=== PATIENT | male | born 1950 | race Caucasian/White ===

== ENCOUNTER 2018-07-18 06:06 | Inpatient (IN) ==
--- NOTE | 2018-07-17 14:35 | Anesthesia Evaluation PreOp ---
Date of Encounter: 07/18/18 Time of Encounter: 06:56 - Past History Planned Operation: endo aaa REPAIR Cardiac History: HTN, Hyperlipidemia, Other (AAA) Pulmonary History: COPD PERSONAL SECRETARY History: Denies Any Significant HX Other Medical History: Renal (bladder cancer) Anesthesia History: No Prior Anesthetic Complications, Past Anesthesia (ORIF ankle, rotator cuff repair, TURBT, hernia, hammer toe) Alcohol Use: none Drug use: none Medications and Allergies Allergy/AdvReac Type Severity Reaction Status Date / Time aspirin [ASA] AdvReac See Verified 07/14/18 11:38 Comments naproxen [From Naprosyn] AdvReac See Verified 07/14/18 11:38 Comments - Meds/Allergy Pre-op Review Medications Reviewed: Yes Allergies Reviewed: Yes Beta Blockers on Current Med List: No Anesthesia Results - Labs Laboratory Tests 07/12/18 07/12/18 10:31 10:31 Hgb 14.9 Hct 44.0 Plt Count 182 Sodium 137 Potassium 4.6 BUN 10 Creatinine 0.81 - Imaging EKG: report reviewed (SINUS RHYTHM WITH OCCASIONAL VENTRICULAR PREMATURE COMPLEXES NONSPECIFIC T-WAVE ABNORMALITY) Additional studies: NUCLEAR STRESS: mpression: No ischemia or infarct on perfusion study. The fixed moderate basal and mid inferior perfusion defect with normal wall motion is likely an artifact. Stress LVEF 55 %. No ischemic stress ECG findings. abdominal CT: FINDINGS: Vasculature: Moderate diffuse atherosclerosis. The renal and visceral arteries are patent, with the inferior mesenteric artery arising at the superior margin of the aneurysm sac. The common iliac arteries are patent where visualized. A fusiform infrarenal abdominal aortic aneurysm is present, which begins approximately 2.6 cm distal to the origin of the right renal arteries, and tapers proximal to the aneurysm sac. In the axial plane, it measures up to 5.3 x 5.8 cm. In the coronal plane, it measures up to 5.6 cm in the transverse dimension. The venous structures are grossly intact. Remainder of exam: The lung bases are unremarkable. The liver, gallbladder, spleen, adrenals, kidneys, and ureters are within normal limits. The bowel appears without acute process where visualized. Diastasis of the rectus musculature is noted. No lymphadenopathy. No free air or free fluid. CT/CT angio abdomen IMPRESSION: Fusiform infrarenal abdominal aortic aneurysm as above, which measures up to 5.8 x 5.3 cm in the axial plane. Its size has increased from the prior exam. Anesthesia Exam Selected Entries 07/18/18 06:28 Temperature 97.8 F Pulse Rate 68 Respiratory Rate 18 Blood Pressure 140/81 O2 Sat by Pulse Oximetry 98 Weight: 115kg NPO (# of Hours): 8 - HEENT Pupil (Motor): EOMI Mallampati: II Teeth: Missing, Poor dentition Denture Type: Upper: Complete Oral Opening: Greater than 3 - PERSONAL SECRETARY LOC: Oriented PERSONAL SECRETARY Motor: Normal RUE, Normal LUE, Normal RLE, Normal LLE, Normal Face PERSONAL SECRETARY Sensory: Normal: RUE, LUE, RLE, LLE, Face - Cardiac Rhythm: Regular Murmur: None - Pulmonary Breath Sounds: bilateral Clear Respiratory Effort: Symmetrical Anesthesia Assess/Plan ASA Score: 3 Modified [place] Scale for Level of Consciousness: Cooperative, oriented, and tranquil Anesthetic Plan: General Monitoring Plan: Standard Monitors, A-Line Recovery Plan: PACU (agrees to GA, a-line, and blood products if needed)
[2018-07-18] MEDS ORDERED: Albuterol 2.5 MG/3 ML NEBULIZER IH ONE (06:19)
[2018-07-18] MEDS ORDERED: CeFAZolin Syr 2,000MG/20 ML 2,000 MG/20 ML SYRINGE IVPB ONE (06:19)
[2018-07-18] MEDS: Ringers Solution, Lactated 1,000 ML IVC SCH ×2 (06:35→12:57)
[2018-07-18] MEDS ORDERED: Lidocaine -MPF 2% 2 ML VIAL ONE (06:54)
[2018-07-18] MEDS ORDERED: *HR* FentaNYL (PF) 100 MCG/2 ML VIAL ONE ×2 (06:54→11:22)
[2018-07-18] MEDS ORDERED: *HR* Rocuronium Bromide 50 MG/5 ML VIAL ONE (06:54)
[2018-07-18] MEDS ORDERED: Ondansetron 4 MG/2 ML VIAL ONE (06:54)
[2018-07-18] MEDS ORDERED: *HR* Succinylcholine 200 MG/10 ML VIAL IVP ONE (06:54)
[2018-07-18] MEDS ORDERED: Dexamethasone 4 MG/ML VIAL ONE (06:54)
[2018-07-18] MEDS ORDERED: *HR* Midazolam HCl 2 MG/2 ML VIAL ONE (06:55)
[2018-07-18] MEDS ORDERED: EPHEDrine 50 MG/ML VIAL ONE ×2 (06:55→10:27)
[2018-07-18] MEDS ORDERED: *HR* Propofol 200 MG/20 ML VIAL IVP ONE (06:55)
[2018-07-18] MEDS ORDERED: *HR* Heparin 5,000 UNIT/ML VIAL ONE (06:56)
[2018-07-18] MEDS ORDERED: Lidocaine -MPF 4% 5 ML AMPUL ONE (06:56)
[2018-07-18] MEDS ORDERED: Heparin 1,000 UNITS/500 mL 500 ML ONE (07:00)
[2018-07-18] MEDS ORDERED: *HR* Phenylephrine 10 MG/ML VIAL ONE ×2 (07:14→10:05)
[2018-07-18] MEDS ORDERED: Heparin 1,000 UNITS/500 mL 1,500 ML ONE (07:26)
[2018-07-18] MEDS ORDERED: Isovue-300 150 ML INFUS..BTL IV ONE (07:27)
--- NOTE | 2018-07-18 07:38 | History & Physical Report ---
Date of Encounter: 07/18/18 Time of Encounter: 07:25 24 Hour HP Update - Instructions Instructions: If the History and Physical is less than 30 days old and was completed prior to A.M. admission and or procedure and has NOT been updated on calendar day of procedure please complete this update prior to performing procedure. - Update Patient reports changes in Medical Condition: No Changes in examination, assessment, or condition: No Changes in Medication: No Preop tests/diagnostics Reviewed: Yes Surgery Remains Indicated: Yes Consent for Planned Operative Procedure(s) Verified: Yes - Pre-Operative Checklist Preoperative Checklist Indicated: Yes Prophylactic Antibiotic Ordered: Yes Home Medications Include Beta Estuardo: No Beta Estuardo Taken Today (Day of Surgery): No Beta Estuardo Taken Yesterday (Day Prior to Surgery): No Is VTE Prophylaxis Indicated?: Yes
[2018-07-18] MEDS ORDERED: ceFAZolin 1,000 MG, Sodium Chloride IRRigation 1,000 ML IR ONE (07:45)
[2018-07-18] MEDS ORDERED: *HR* OxyCODONE Immed Rel 5 MG TABLET PO PRN (08:30)
[2018-07-18] MEDS ORDERED: *HR* Labetalol 20 MG/4 ML SYRINGE IVP PRN ×2 (08:30→12:54)
[2018-07-18] MEDS ORDERED: *HR* Promethazine 25 MG/ML VIAL IVP PRN (08:30)
[2018-07-18] MEDS ORDERED: Heparin 1,000 UNITS/500 mL 1,000 ML ONE (09:28)
[2018-07-18] MEDS ORDERED: Neostigmine Methylsulfate 3 MG/3 ML SYRINGE ONE (10:47)
--- NOTE | 2018-07-18 11:57 | Operative Note ---
Date of procedure: 07/18/18 Pre-op diagnosis: AAA Post-op diagnosis: same Procedure: Endovascular repair of AAA Bilateral open femoral exposure Complications: 0 Anesthesia: GETA Surgeon: Jaydon Jameson Was there an admissions assistant present: No Estimated blood loss (cc): 250 Specimen: 0 Condition: stable Disposition: PACU
--- NOTE | 2018-07-18 12:43 | Anesthesia Evaluation Post Op ---
Date of Encounter: 07/18/18 Time of Encounter: 12:42 - Vital Signs Vital Signs: Vital Signs/O2 Sat, Most Current Temp Pulse Resp BP Pulse Ox 98.2 F 67 14 106/65 100 07/18/18 12:27 07/18/18 12:37 07/18/18 12:37 07/18/18 12:37 07/18/18 12:37 - Lungs Lungs: Clear Ascult./Percussion - Airway Airway: Non-obstructed - Cardiovascular Regular Rate, Baseline Rhythm - Mental Status Mental Status: Alert & Oriented, Answers Appropriately - Pain Pain Scale: 4 Pain Scale used: Numeric (1 - 10) - Nausea Vomiting Nausea Vomiting: Not Present - Hydration Hydration: Ice chips, Lao catheter - Discharge PostOp Status: Transfer Patient to floor
[2018-07-18] MEDS ORDERED: Naloxone 0.4 MG/ML INJ IVP PRN (12:54)
[2018-07-18] MEDS ORDERED: Ondansetron 4 MG/2 ML VIAL IVP PRN (12:54)
[2018-07-18] MEDS ORDERED: *HR* HYDROcodone/Acet 5/325 mg TABLET PO PRN (12:54)
[2018-07-18] MEDS ORDERED: Albuterol 2.5 MG/3 ML NEBULIZER IH PRN (12:54)
[2018-07-18] MEDS: *HR* HYDROcodone/Acet 5/325 mg TABLET PO PRN ×2 (15:25→21:25)
[2018-07-19] MEDS: *HR* HYDROcodone/Acet 5/325 mg TABLET PO PRN ×2 (02:42→08:17)
[2018-07-19 03:05] LABS: Hematocrit 27.8 % (37.5-50.1); Hemoglobin 9.2 g/dL (12.9-16.9); Mean Corpuscular HGB Conc 33.1 g/dL (31.6-35.5); Mean Corpuscular Hemoglobin 31.3 pg (28.0-33.3); Mean Corpuscular Volume 94.6 fL (83.0-100.0); Mean Platelet Volume 8.9 fL (9.4-12.4); Platelet Count 107 K/mcL (140-400); Red Blood Count 2.94 M/mcL (4.19-5.50); Red Cell Distribution Width 12.9 % (11.5-14.5)
[2018-07-19 03:28] LABS: BUN/Creatinine Ratio 12 (6-26); Blood Urea Nitrogen 9 mg/dL (8-23); Calcium 8.8 mg/dL (8.6-10.3); Carbon Dioxide 25 mEq/L (23-29); Chloride 108 mEq/L (98-107); Glucose 135 mg/dL (70-105); Osmolality,Calculated 291 (280-300); Potassium 3.8 mEq/L (3.5-5.1); Sodium 140 mEq/L (136-145); eGFR For Non-African Americans > 60 (> 60)
[2018-07-19] MEDS ORDERED: Tiotropium 18 MCG inhalation IH SCH (07:00)
[2018-07-19] MEDS ORDERED: Loratadine 10 MG TABLET PO SCH (09:00)
[2018-07-19] MEDS ORDERED: amLODIPine 5 MG TABLET PO SCH (09:00)
[2018-07-19 11:45] VITALS: BP 126/79
--- NOTE | 2018-07-19 12:38 | Discharge Summary ---
Date of Encounter: 07/19/18 Time of Encounter: 08:25 - Discharge Diagnosis (1) Abdominal aortic aneurysm Priority: Primary Status: Acute Comments: Patient has asymptomatic but expanding abdominal aortic aneurysm. [facility] Patient underwent endovascular repair with stent graft placement. Qualifiers: Presence of rupture: without rupture Qualified Code(s): I71.4 - Abdominal aortic aneurysm, without rupture (2) COPD (chronic obstructive pulmonary disease) Priority: Secondary Status: Chronic Comments: History of COPD. Qualifiers: COPD type: unspecified COPD Qualified Code(s): J44.9 - Chronic obstructive pulmonary disease, unspecified (3) Hypertension Priority: Secondary Status: Chronic Comments: History of hypertension Qualifiers: Hypertension type: essential hypertension Qualified Code(s): I10 - Essential (primary) hypertension (4) Hyperlipidemia Priority: Secondary Status: Chronic Comments: History of hyperlipidemia Qualifiers: Hyperlipidemia type: unspecified Qualified Code(s): E78.5 - Hyperlipidemia, unspecified - Hospital Course Hospital course: Mr. Mccabe is a 67 year old male With an asymptomatic but slowly expanding abdominal aortic aneurysm. Patient was admitted yesterday for endovascular repair. This was performed under general endotracheal anesthesia. The patient had no periprocedural complications. He tolerated the procedure well. He had an uneventful postoperative course. The patient was felt fit for discharge on the afternoon of postoperative day #1. Instructions were given in regards to his diet and activities and exercise. As well as wound care. All questions were answered. - Time Spent with Patient Total time spent providing and/or coordinating discharge services: - Discharge Medications Home Medications: Albuterol Neb [Proventil Neb] 2.5 mg IH Q6H PRN 07/18/18 [History] Albuterol Sulfate [Proair Hfa] 2 puff IH Q6H PRN 07/18/18 [History] Amlodipine Besylate 10 mg PO DAILY 07/18/18 [History] Calcium Carbonate [Calcium] 600 mg PO DAILY 07/18/18 [History] Clopidogrel [Plavix] 75 mg PO DAILY 07/18/18 [History] Cyclobenzaprine [Flexeril] 10 mg PO BID 07/18/18 [History] HYDROcodone/Acet 5/325 mg [Chandler 5-325 mg] 1 tab PO BID PRN 07/18/18 [History] Loratadine [Allergy Relief] 10 mg PO DAILY 07/18/18 [History] Simvastatin [Zocor] 5 mg PO HS 07/18/18 [History] Tiotropium [Spiriva] 18 mcg IH 0700 07/18/18 [History] Allergies/Adverse Reactions: Allergy/AdvReac Type Severity Reaction Status Date / Time aspirin [ASA] AdvReac See Verified 07/18/18 07:11 Comments naproxen [From Naprosyn] AdvReac See Verified 07/18/18 07:11 Comments Date of admission: 07/18/18 12:52 Primary care physician: [facility] Consults: None Procedure(s) Performed: Endovascular repair of abdominal aortic aneurysm Discharging clinician: Jaydon Jameson Anticipated date of discharge: 07/19/18 Exam Vital Signs, Last 4 Hours Temp Pulse Resp BP Pulse Ox 07/19/18 11:44 98.2 F 84 18 126/79 95 General: Present: Conversant, No Apparent Distress HEENT: Present: Atraumatic Neck: Absent: JVD Cardiac: Present: Reg Rate and Rhythm Lungs: Present: Normal Breath Sounds Neuro: Present: Alert and responsive, No focal deficits noted, Cranial nerves gr ossly intact Abdomen: Present: Soft, Non-tender. Absent: Masses Vascular: Present: Surgical incisions (Surgical dressings are dry and intact.) Skin: Present: No rashes noted on visualized skin - Patient Status Disposition: Home, Self-Care Condition: Good Functional capacity at discharge: independent ambulation Overall status at discharge: patient is progressing back to baseline - Discharge Instructions Follow Up With: [place],PCP [Primary Care Provider] - 07/25/18 3:00 pm (This appointment is in [facility]) Jaydon Jameson MD [Partnered Physician] - 08/09/18 9:45 am Additional Instructions: Remove surgical dressings tomorrow at home. No driving. No lifting greater than 10 pounds. No manual labor. Resume usual home medications. Keep surgical sites dry for total of 5 days following surgery. Patient may walk inside and outside. Patient may use stairs as tolerated. Use incentive spirometer at home 10 times an hour while awake. After 2 weeks discard incentive spirometer device. - Diet and Activity Activity: increase activity as tolerated Diet: low fat, low cholesterol
== END 2018-07-19 14:19 | disposition home or self-care (01) | DRG 269 ==
LOC: SAMDAY 06:06 → 2NNU 12:52
PROVIDERS: ADMIT Surgery Vascular Surgery; ATTEND Surgery Vascular Surgery